=== PATIENT | male | born 2000 | race Caucasian/White ===

== ENCOUNTER 2023-11-20 07:37 | Emergency (ER) | payer MEDICAID, OTHER, SELFPAY ==
[~2023-11-20] VITALS: Ht 185.4 cm; Wt 75.0 kg
[2023-11-20 11:33] VITALS: BP 138/78; TEMP 97.8; O2SAT 99
[2023-11-20] MEDS: CEPHALEXIN 500 MG CAP PO ONE (11:39)
[2023-11-20] MEDS: BOOSTRIX VACCINE (TETANUS/DIPHTH/ACEL. PERTUSSIS) 0.5ML SYR IM ONE (11:40)
[2023-11-20] MEDS ORDERED: CEPH500C PO (11:43)
== END 2023-11-20 11:55 | disposition home or self-care (01) ==
LOC: M ED 07:37
DX: S61.213A Laceration without foreign body of left middle finger without damage to nail, initial encounter (principal); X58.XXXA Exposure to other specified factors, initial encounter; Y92.89 Other specified places as the place of occurrence of the external cause; Y93.89 Activity, other specified; Y99.0 Civilian activity done for income or pay; F12.90 Cannabis use, unspecified, uncomplicated